=== PATIENT | male | born 1955 | race Two or more races ===

== ENCOUNTER 2021-07-24 21:20 | Emergency (ER) | payer MEDICARE, OTHER ==
[~2021-07-24] VITALS: Ht 162.6 cm; Wt 67.6 kg
[2021-07-25 01:13] LABS: Basophils # (auto) 0 10 ^3/uL (0-0.2); Basophils % (auto) 0.2 % (0.0-2.0); Eosinophils # (auto) 0.1 10 ^3/uL (0-0.8); Hematocrit 32.4 % (41.0-53.0); Hemoglobin 10.8 g/dL (13.5-17.5); Lymphocytes # (auto) 0.9 10 ^3/uL (0.4-5.4); Lymphocytes % (auto) 12.2 % (10.0-50.0); Mean Corpuscular Hemoglobin 30.2 pg (28.0-32.0); Mean Corpuscular Hgb Conc. 33.5 g/dL (32.0-36.0); Mean Corpuscular Volume 90.2 fL (80.0-100.0); Monocytes # (auto) 0.7 10 ^3/uL (0-1.3); Monocytes % (auto) 9.4 % (0.0-12.0); Neutrophils # (auto) 5.7 10 ^3/uL (1.6-8.6); Neutrophils % (auto) 76.2 % (37.0-80.0); Red Blood Cells 3.59 10^6/uL (4.5-5.90); Red Cell Distribution Width 13.6 % (11.8-14.3); White Blood Cell 7.5 10^3/uL (4.4-10.8)
[2021-07-25 01:28] LABS: Albumin 3.7 g/dL (3.4-5.0); Calcium 8.5 mg/dL (8.5-10.1); Potassium 4.9 mmol/L (3.5-5.1)
[2021-07-25 01:30] VITALS: BP 172/73
[2021-07-25 01:35] LABS: BUN/Creatinine Ratio 12.4; Bilirubin, Total 0.4 mg/dL (0.2-1.0); Total Protein 7.4 g/dL (6.4-8.2)
== END 2021-07-25 02:25 | disposition home or self-care (01) ==
LOC: ER 21:22
DX: I10 Essential (primary) hypertension (principal); R42 Dizziness and giddiness
CPT/HCPCS: 36415; 80053; 83880; 84484; 85025; 93005

== ENCOUNTER 2024-09-07 22:26 | Emergency (ER) | payer OTHER, MEDICAID ==
[~2024-09-07] VITALS: Ht 167.6 cm; Wt 68.7 kg
[2024-09-07] MEDS: cloNIDine HCL 0.1 MG TAB PO ONE (22:57)
--- NOTE | 2024-09-07 22:59 | ECG ---
[facility] Test Date: 2024-09-07 Test Time: 22:51:09 Pat Name: PETAR KEARNEY Department: ER Room: Gender: M [employer]: : 1955 Requested By: EMERGENCY EMERGENCY Order Number: [id number] Reading MD: Pedro Chaidez Measurements Intervals [place] Rate: 104 P: 42 VA: 177 QRS: -16 QRSD: 90 T: 25 QT: 365 QTc: 481 Interpretive Statements Sinus tachycardia Consider left ventricular hypertrophy Borderline prolonged QT interval Electronically Signed On 09-13-2024 15:11:53 PST by Pedro Chaidez Please click the below link to view image of tracing.
--- NOTE | 2024-09-08 00:34 | DVH ---
EXAM: CT HEAD WITHOUT CONTRAST INDICATION: HeadAche, new symptoms, HTN TECHNIQUE: CT of the head without intravenous contrast. Radiation Dose : 1. Head: CT Dose: CTDI volume is 66 mGy. Dose-length product is 1062 mGy*cm The dose indicators for CT are the volume Computed Tomography (CT) Dose Index (CTDIvol) and the Dose Length Product (DLP), and are measured in units of mGy and mGy-cm, respectively. These indicators are not patient dose, but values generated from the CT scanner acquisition factors. The report includes radiation exposure data for exposures received during this examination. COMPARISON: None FINDINGS: There is no evidence of acute intracranial hemorrhage, extra-axial collection, mass effect, midline s hift, herniation or hydrocephalus. The ventricles, sulci and cisterns are age appropriate. The branham-white differentiation is intact. Patchy periventricular and subcortical white matter hypoattenuation is nonspecific but may be related to small vessel ischemic disease. The visualized paranasal sinuses and mastoid air cells are clear. The surrounding soft tissues and osseous structures are unremarkable. IMPRESSION: 1. No acute intracranial abnormality. Radiation optimization: All CT scans at this facility use at least one of these dose optimization leelee hniques: automated exposure control mA and/or kV adjustment per patient size (includes targeted exam s where dose is matched to clinical indication) or iterative reconstruction.
--- NOTE | 2024-09-08 00:35 | DVH ---
CHEST RADIOGRAPH Indication: cp Technique: Single frontal view of the chest was obtained COMPARISON: None FINDINGS: Lines and Tubes: None Lungs: Clear Pleura: No effusion. No pneumothorax. Cardiomediastinal contours: Unremarkable Bones: Unremarkable IMPRESSION: 1. No acute disease.
[2024-09-08 00:53] LABS: Basophils # (auto) 0 10 ^3/uL (0-0.2); Basophils % (auto) 0.1 % (0.0-2.0); Eosinophils # (auto) 0.1 10 ^3/uL (0-0.8); Eosinophils % (auto) 0.9 % (0.0-7.0); Hematocrit 39.2 % (41.0-53.0); Hemoglobin 13.4 g/dL (13.5-17.5); Lymphocytes # (auto) 0.6 10 ^3/uL (0.4-5.4); Lymphocytes % (auto) 6.5 % (10.0-50.0); Mean Corpuscular Hemoglobin 32.8 pg (28.0-32.0); Mean Corpuscular Hgb Conc. 34.1 g/dL (32.0-36.0); Mean Corpuscular Volume 95.9 fL (80.0-100.0); Monocytes # (auto) 1.1 10 ^3/uL (0-1.3); Monocytes % (auto) 11.1 % (0.0-12.0); Neutrophils # (auto) 7.8 10 ^3/uL (1.6-8.6); Neutrophils % (auto) 81.4 % (37.0-80.0); Platelet Count (auto) 168 10^3/uL (140-450); Red Blood Cells 4.09 10^6/uL (4.5-5.90); Red Cell Distribution Width 13.9 % (11.8-14.3); White Blood Cell 9.6 10^3/uL (4.4-10.8)
[2024-09-08 01:04] VITALS: BP 143/85; PULSE 84; RESP 18; TEMP 98; O2SAT 97
[2024-09-08 01:05] LABS: Albumin 4.6 g/dL (3.2-4.8); Anion Gap 9 (5-15); BUN/Creatinine Ratio 6.4 (10.0-20.0); Bilirubin, Total 0.7 mg/dL (0.2-1.0); Blood Urea Nitrogen 20 mg/dL (9-23); Calcium 10.1 mg/dL (8.7-10.4); Carbon Dioxide 28 mmol/L (20-31); Chloride 101 mmol/L (98-107); Potassium 4.1 mmol/L (3.5-5.1); Sodium 138 mmol/L (136-145); Total Protein 7.2 g/dL (5.7-8.2)
[2024-09-08] MEDS: ACETAMINOPHEN 325 MG TAB PO ONE (01:10)
[2024-09-08 01:11] LABS: Alanine Aminotransferase 65 U/L (7-40); Alkaline Phosphatase 121 U/L (46-116); Aspartate Aminotransferase 49 U/L (13-40); Glucose 138 mg/dL (74-106)
--- NOTE | 2024-09-08 01:14 | ED.PDOC ---
HPI Comments 69y M who presents to the ED for chief complaint of elevated blood pressure. Pt states he has been having high blood pressure since 7 PM earlier this PM. Pt states he has been having associated L earache. Pt states he has history of HTN and CKD and while receiving dialysis, his BP was elevated throughout his treatment. Pt states he went home after treatment and took his HTN medications but states his BP remained elevated and came to the ED for further evaluation. Pt BP in the ED upon arrival is 202/84 and after repeat,pt BP was noted to be 129/64 . Pt otherwise denies any other symptoms at this time. Chief Complaint: High Blood Pressure Time Seen by MD: 00:00 Reviewed Notes: Nurses Notes Allergies: Coded Allergies: NO KNOWN ALLERGIES (Unverified , 07/24/21) Home Meds Active Scripts Amoxicillin Trihydrate (Amoxicillin) 250 Mg Cap, 1 CAP PO DAILY for 10 Days, #10 CAP Prov:RASHAAD GUERRA MD 09/08/24 Information Source: Patient, Relative Mode of Arrival: Ambulatory Brought in by: daughter Vital Signs Vital Signs Date Time Temp Pulse Resp B/P (MAP) Pulse Ox O2 Delivery O2 Flow Rate FiO2 09/08/24 01:04 84 18 97 Room Air* 0 21 09/08/24 01:04 98.0 143/85 (104) 98.0 Physical Exam General: Awake, alert and oriented. No acute distress. Skin: Skin in warm, dry and intact. Appropriate color for ethnicity. Nailbeds pink with no cyanosis. HEENT: The head is normocephalic and atraumatic. Conjunctivae are clear without exudates or hemorrhage. Sclera is non-icteric. EOM are intact. No signs of nystagmus. Eyelids are normal in appearance without swelling or lesions. Oral mucosa is pink and moist. Left tympanic membrane is erythematous, bulging. No scalp or temporal tenderness. Neck: The neck is supple with normal range of motion. No JVD. Cardiac: Heart rate and rhythm are normal. No murmurs, gallops, or rubs are auscultated. Respiratory: No signs of respiratory distress. Lung sounds are clear in all lobes bilaterally without rales, ronchi, or wheezes. Abdominal: Abdomen is soft, non-tender without distention. Bowel sounds are present and normoactive in all four quadrants. Extremities: Upper and lower extremities are atraumatic in appearance without deformity or edema. Neurological: The patient is awake, alert and oriented to person, place, and time with normal speech. Speech is clear. There is no facial asymmetry. Normal [id number] test. Normal gait. Able to stand on each leg individually. Psychiatric: Appropriate mood and affect. Good judgement and insight. No visual or auditory hallucinations. Review of Systems: As stated in HPI Past Medical History PAST MEDICAL HISTORY: CKF, HTN Surgical History: Denies all surgeries Family History Family History: Reviewed,noncontributory to illness Social History Smoker: Non-Smoker Alcohol: Denies ETOH Use Drugs: Denies Drug Use Lives In: Home Was a procedure done? Was a procedure done?: No CP Differential Dx Differential Diagnosis: Other Other Differential Diagnosis Differential diagnoses considered include but are not limited to temporal arteritis, acute angle closure glaucoma, encephalitis, bacterial meningitis, carbon monoxide poisoning, posttraumatic headache, SAH, subdural hematoma, cervical artery dissection, venous sinus thrombosis, CVA, migraine headache, cluster headache, tension headache, TMJ disorder, frontal sinusitis, cervical spondylosis, intracranial mass, pituitary apoplexy. X-Ray, Labs, Meds, VS Vital Signs Date Time Temp Pulse Resp B/P (MAP) Pulse Ox O2 Delivery O2 Flow Rate FiO2 09/08/24 01:04 84 18 97 Room Air* 0 21 09/08/24 01:04 98.0 80 18 143/85 (104) 95 98.0 09/08/24 00:00 129/64 09/07/24 22:57 202/84 09/07/24 22:51 104 09/07/24 22:38 98.8 114 18 202/84 (123) 96 Lab Test 09/08/24 01:18 09/08/24 00:30 Range/Units Troponin I High Sensitivity 23 22 </=54 ng/L White Blood Count 9.6 4.4-10.8 10^3/uL Red Blood Count 4.09 L 4.5-5.90 10^6/uL Hemoglobin 13.4 L 13.5-17.5 g/dL Hematocrit 39.2 L 41.0-53.0 % Mean Corpuscular Volume 95.9 80.0-100.0 fL Mean Corpuscular Hemoglobin 32.8 H 28.0-32.0 pg Mean Corpuscular Hemoglobin Concent 34.1 32.0-36.0 g/dL Red Cell Distribution Width 13.9 11.8-14.3 % Platelet Count 168 140-450 10^3/uL Mean Platelet Volume 8.4 6.9-10.8 fL Neutrophils (%) (Auto) 81.4 H 37.0-80.0 % Lymphocytes (%) (Auto) 6.5 L 10.0-50.0 % Monocytes (%) (Auto) 11.1 0.0-12.0 % Eosinophils (%) (Auto) 0.9 0.0-7.0 % Basophils (%) (Auto) 0.1 0.0-2.0 % Neutrophils # (Auto) 7.8 1.6-8.6 10 ^3/uL Lymphocytes # (Auto) 0.6 0.4-5.4 10 ^3/uL Monocytes # (Auto) 1.1 0-1.3 10 ^3/uL Eosinophils # (Auto) 0.1 0-0.8 10 ^3/uL Basophils # (Auto) 0 0-0.2 10 ^3/uL Nucleated Red Blood Cells 0.0 % Sodium Level 138 136-145 mmol/L Potassium Level 4.1 3.5-5.1 mmol/L Chloride Level 101 98-107 mmol/L Carbon Dioxide Level 28 20-31 mmol/L Anion Gap 9 5-15 Blood Urea Nitrogen 20 9-23 mg/dL Creatinine 3.14 H 0.700-1.30 mg/dL Glomerular Filtration Rate Calc 20 >90 mL/min BUN/Creatinine Ratio 6.4 L 10.0-20.0 Serum Glucose 138 H 74-106 mg/dL Calcium Level 10.1 8.7-10.4 mg/dL Total Bilirubin 0.7 0.2-1.0 mg/dL Aspartate Amino Transferase (AST) 49 H 13-40 U/L Alanine Aminotransferase (ALT) 65 H 7-40 U/L Alkaline Phosphatase 121 H 46-116 U/L B-Type Natriuretic Peptide 197.05 0-100 pg/mL Total Protein 7.2 5.7-8.2 g/dL Albumin 4.6 3.2-4.8 g/dL [facility] [id number] [facility] [address] Ph: [phone] DIAGNOSTIC IMAGING Diagnostic Imaging Report : [id number] Signed PATIENT: PETAR KEARNEY ACCT: [id number] UNIT: [id number] : 1955 LOC: ER ROOM / BED: / AGE / SEX: 69 / M ADM STATUS: REG ER SERVICE ORDERING PHYSICIAN: RASHAAD GUERRA MD PROCEDURE(s): HWOCT - HEAD WITHOUT CONTRAST REASON: HeadAche, new symptoms, HTN ORDER NUMBER(s): [id number], ACCESSION NUMBER(s): [id number] EXAM: CT HEAD WITHOUT CONTRAST INDICATION: HeadAche, new symptoms, HTN TECHNIQUE: CT of the head without intravenous contrast. Radiation Dose : 1. Head: CT Dose: CTDI volume is 66 mGy. Dose-length product is 1062 mGy*cm The dose indicators for CT are the volume Computed Tomography (CT) Dose Index (CTDIvol) and the Dose Length Product (DLP), and are measured in units of mGy and mGy-cm, respectively. These indicators are not patient dose, but values generated from the CT scanner acquisition factors. The report includes radiation exposure data for exposures received during this examination. COMPARISON: None FINDINGS: There is no evidence of acute intracranial hemorrhage, extra-axial collection, mass effect, midline shift, herniation or hydrocephalus. The ventricles, sulci and cisterns are age appropriate. The branham-white differentiation is intact. Patchy periventricular and subcortical white matter hypoattenuation is nonspecific but may be related to small vessel ischemic disease. The visualized paranasal sinuses and mastoid air cells are clear. The surrounding soft tissues and osseous structures are unremarkable. IMPRESSION: 1. No acute intracranial abnormality. Radiation optimization: All CT scans at this facility use at least one of these dose optimization techniques: automated exposure control mA and/or kV adjustment per patient size (includes targeted exams where dose is matched to clinical indication) or iterative reconstruction. ATED BY: SIM DORSEY MD DICTATED DATE/TIME: 09/08/2431 SIGNED BY: SIM DORSEY MD SIGNED DATE/TIME: 09/08/2431 CC: [place] [id number] Ph: [phone] DIAGNOSTIC IMAGING Diagnostic Imaging Report : [id number] Signed PATIENT: PETAR KEARNEY ACCT: [id number] UNIT: [id number] : 1955 LOC: ER ROOM / BED: / AGE / SEX: 69 / M ADM STATUS: REG ER SERVICE [id number] ORDERING PHYSICIAN: RASHAAD GUERRA MD PROCEDURE(s): CXR1 - CHEST XRAY 1 VIEW REASON: cp ORDER NUMBER(s): [id number], ACCESSION NUMBER(s): [id number] CHEST RADIOGRAPH Indication: cp Technique: Single frontal view of the chest was obtained COMPARISON: None FINDINGS: Lines and Tubes: None Lungs: Clear Pleura: No effusion. No pneumothorax. Cardiomediastinal contours: Unremarkable Bones: Unremarkable IMPRESSION: 1. No acute disease. ATED BY: SIM DORSEY MD DICTATED DATE/TIME: 09/08/2431 SIGNED BY: SIM DORSEY MD SIGNED DATE/TIME: 09/08/2431 CC: Time of 1ST Reevaluation: 00:30 Reevaluation 1ST: Unchanged Patient Education/Counseling: Diagnosis, Treatment Family Education/Counseling: Diagnosis, Treatment Departure 1 Departure Time of Disposition: 02:35 Impression: Primary Impression: Head ache Additional Impressions: Otitis media Hypertension Disposition: HOME / SELF CARE / HOMELESS Condition: Stable Additional Instructions: INSTRUCCIONES DE MARY DE Urgencias Instrucciones: Elsy atentamente todas las instrucciones proporcionadas en tristan paquete. Aunque le hayan dado el mary del Departamento de Emergencias, esto no significa que tenga un "certificado de buena timi". Hoy no se ferguson realizado ningn d iagnstico definitivo para ольга sntomas. Es posible que ests en proceso de desarrollar teresa enfermedad grave. Es por eso que debe regresar al servicio de urgencias sin falta si presenta algn sntoma nuevo o que empeora (especialmente si ольга sntomas incluyen dolor en el pecho, dificultad para respirar, dolor abdominal, fiebre, dolor de faith, confusin, dificultad para zuleyka o caminar). Ace es muy importante que consulte a un mdico de atencin primaria dentro de los prximos 3 a 5 ramos para realizar un seguimiento. Si no puede conseguir teresa olinda, regrese al servicio de urgencias para teresa nueva evaluacin. Dolor de faith: instrucciones de cuidado Descripcin general Los mike de faith tienen muchas causas posibles. La mayora de los mike de faith no son un sntoma de un problema ms grave y mejoran por s solos. El tratamiento en el hogar puede ayudarle a sentirse mejor ms rpido. El mdico lo ferguson examinado cuidadosamente, pattie pueden surgir problemas ms adelante. Si nota algn problema o sntomas nuevos, busque tratamiento mdico de inmediato . El seguimiento mdico es teresa parte fundamental de guerra tratamiento y guerra seguridad. Asegrese de concertar y acudir a todas las citas, y llame a guerra mdico si tiene problemas. Tambin es teresa buena idea saber los resultados de ольга pruebas y llevar teresa lista de los medicamentos que avery. Retort Loader puedes cuidarte en casa? Descanse en teresa habitacin tranquila y oscura hasta que desaparezca el dolor de faith. Cierre los ojos e intente relajarse o dormir. No eloy televisin ni elsy. Coloque un ave hmedo y fro o teresa compresa fra sobre la chay dolorida odilia 10 a 20 minutos cada vez. Coloque un ave tigre entre la compresa fra y la piel. Utilice teresa toalla tibia y hmeda o teresa almohadilla trmica a temperatura baja para relajar los msculos tensos de los hombros y el shadia. Pdale a alguien que le masajee suavemente el shadia y los hombros. Elsie los analgsicos exactamente segn las indicaciones. Si el mdico le recet un medicamento para el dolor, tmelo segn lo prescrito. Si no est tomando un analgsico recetado, pregntele a guerra mdico si puede ignacio un medicamento de venta milagros. No ignore los sntomas nuevos que aparecen junto con el dolor de faith, stephanie fiebre, debilidad o entumecimiento, cambios en la visin o confusin. Estos pueden ser signos de un problema ms grave. Para prevenir mike de faith Lleva un diario de tus mike de faith para que puedas identificar qu los desencadena. Evitar los desencadenantes puede ayudarte a prevenirlos. Registra cundo comenz cada dolor de faith, cunto dur y manager hiv fue (palpitante, sordo, punzante o sordo). Anota cualquier otro sntoma que hayas tenido junto con el dolor de faith, stephanie nuseas, luces intermitentes o manchas oscuras, o sensibilidad a la giselle brillante o a los ruidos earlene. Anota si el dolor de faith se produjo cerca de tu perodo. Haz teresa lista de todo lo que podra olvin desencadenado el dolor de faith, stephanie determinados alimentos (chocolate, queso, vino) u olores, humo, giselle brillante, estrs o falta de sueo. Busque formas saludables de lidiar con el estrs. Los mike de faith son ms comunes odilia o inmediatamente despus de momentos estresantes. Tmese un tiempo para relajarse antes y despus de hacer algo que le haya causado dolor de faith en el pasado. Intenta mantener los msculos relajados manteniendo teresa buena postura. Examina la mandbula, la malka, el shadia y los msculos de los hombros para zuleyka si estn tensos y trata de relajarlos. Cuando ests sentado en un escritorio, cambia de posicin con frecuencia y estrate odilia 30 segundos cada hora. Duerma lo suficiente y last ejercicio. Coma con regularidad. Los perodos prolongados sin alimentos pueden provocar dolor de faith. Limite la cafena evitando beber demasiado caf, t o refrescos, pattie no deje de tomarla de repente, ya que tambin puede provocarle mike de faith. Reduzca la fatiga visual causada por el uso de la computadora parpadeando con frecuencia y apartando la mirada de la pantalla de vez en cuando. Asegrese de utilizar los anteojos adecuados y de que el monitor est colocado correctamente, a teresa distancia de aproximadamente un brazo. Cundo debes pedir ayuda? Llame al 911 en cualquier momento en que crea que puede necesitar atencin de emergencia. Por ejemplo, llame si: Tiene sntomas de un accidente cerebrovascular, que pueden incluir: Entumecimiento repentino, parlisis o debilidad en la malka, el brazo o la pierna, especialmente en un solo lado del cuerpo. Cambios repentinos en la visin. Dificultad repentina para hablar. Confusin repentina o dificultad para comprender afirmaciones simples. Problemas repentinos con la marcha o el equilibrio. Un dolor de faith repentino y mora que es diferente a los mike de faith anteriores. Llame a guerra mdico ahora o busque atencin mdica inmediata si: Tienes fiebre y el shadia rgido. Tiene nuseas y vmitos nuevos o no puede retener alimentos o lquidos. Tu dolor de faith empeora mucho. Preste atencin a los cambios en guerra timi y asegrese de comunicarse con guerra mdico si: Ольга mike de faith empeoran, ocurren con ms frecuencia o cambian de alguna manera. Tienes nuevos sntomas. Tu raf se ve alterada por tus mike de faith. Por ejemplo, a menudo faltas al trabajo, a la escuela o a otras actividades. No mejoras stephanie esperabas Crditos para el dolor de faith: instrucciones de cuidado Actualizado al: 20 de 2022 Autor: Personal de [facility], [facility] Junta de revisin clnica Toda la educacin de [facility] es revisada por un equipo que incluye mdicos, enfermeras, profesionales avanzados, dietistas registrados y otros profesionales de la timi. e-Prescriptions Amoxicillin Trihydrate (Amoxicillin) 250 Mg Cap 1 CAP PO DAILY for 10 Days, #10 CAP Prov: RASHAAD GUERRA MD 09/08/24 Comments 69-year-old male with headache, exam is suspicious for otitis media. We will treat with antibiotics. Patient advised to follow up with primary care provider for further evaluation. ---- I reviewed the following notes from the pt's past medical encounters: N/A The following tests were ordered, and results were reviewed by me: (See diagnostic results section) Additional information was gathered from interviewing the following independent historians: Patient's daughter I reviewed and agreed with the following test results read by other providers: CT head, chest x-ray I discussed treatments and results with medical personnel and: N/A Decision regarding hospitalization or escalation of hospital level of care: Risks and benefits of admission for further treatment of patient's condition was considered however due to patient's stable condition patient will be discharged to follow up closely or return to care for worsening of condition or inability to follow up. Critical Care Note Critical Care Time?: No Stability Stability form required: No Heart Score Heart Score: Heart Score Response (Comments) Value History N/A 0 EKG N/A 0 Age N/A 0 Risk Factors N/A 0 Troponin N/A 0 Total 0 I personally scribed for RASHAAD GUERRA MD ([email or web address]) on 09/08/24 at 01:14. Electronically submitted by Jose Willams ([email or web address]). RASHAAD GUERRA MD Sep 08, 2024 01:14
[2024-09-08] MEDS ORDERED: AMOX250C3 PO (02:41)
== END 2024-09-08 02:55 | disposition home or self-care (01) ==
LOC: ER 22:26
DX: I12.0 Hypertensive chronic kidney disease with stage 5 chronic kidney disease or end stage renal disease (principal); N18.6 End stage renal disease; H66.92 Otitis media, unspecified, left ear; Z99.2 Dependence on renal dialysis
CPT/HCPCS: 36415; 70450; 71045; 80053; 83880; 84484; 85025; 93005